=== PATIENT | male | born 1980 | race Hispanic/Latino ===

== ENCOUNTER → 2023-07-01 | Emergency (ER) | payer OTHER ==
[~2023-07-01] VITALS: Ht 182.9 cm; Wt 117.9 kg
[~2023-07-01] MED LIST: IBUP-2077 PO; METF-446 PO; PRAV20TA4 PO
[2023-07-01 16:26] VITALS: BP 145/97; PULSE 78; RESP 18; O2SAT 100
[2023-07-01] MEDS: IBUPROFEN 800 MG TAB PO ONE (16:35)
== END | disposition home or self-care (01) ==
LOC: EDH 15:50
DX: S76.011A Strain of muscle, fascia and tendon of right hip, initial encounter (principal); S80.01XA Contusion of right knee, initial encounter; I10 Essential (primary) hypertension; E78.00 Pure hypercholesterolemia, unspecified; E11.9 Type 2 diabetes mellitus without complications; Z90.89 Acquired absence of other organs; W01.0XXA Fall on same level from slipping, tripping and stumbling without subsequent striking against object, initial encounter; Y93.89 Activity, other specified; Y92.89 Other specified places as the place of occurrence of the external cause; Y99.8 Other external cause status
CPT/HCPCS: 73502; 73564

== ENCOUNTER 2023-07-19 22:53 | Emergency (ER) | payer OTHER ==
[~2023-07-19] VITALS: Ht 182.9 cm; Wt 116.1 kg
[2023-07-20] MEDS: ACETAMINOPHEN 500 MG TABLET PO ONE (00:33)
[2023-07-20 03:52] VITALS: BP 139/79; PULSE 79; RESP 17; O2SAT 98
== END 2023-07-20 04:33 | disposition home or self-care (01) ==
LOC: EDH 22:53
DX: H11.422 Conjunctival edema, left eye (principal); I10 Essential (primary) hypertension; E11.9 Type 2 diabetes mellitus without complications; E78.00 Pure hypercholesterolemia, unspecified; Z79.84 Long term (current) use of oral hypoglycemic drugs; Z90.49 Acquired absence of other specified parts of digestive tract; Z79.899 Other long term (current) drug therapy; Z98.890 Other specified postprocedural states
CPT/HCPCS: 99282

== ENCOUNTER 2025-01-11 19:27 | Emergency (ER) | payer OTHER ==
[~2025-01-11] VITALS: Ht 182.9 cm; Wt 113.4 kg
[~2025-01-11 19:27] MED LIST changes: -PRAV20TA4 PO; +PRAV20TA59 PO
--- NOTE | 2025-01-11 19:53 | ERN ---
General Chief Complaint: Abdominal Pain Stated Complaint: ABD PAIN, NAUSEA Time Seen by MD: 19:46 Source: patient History of Present Illness Initial Comments 44-year-old male with diabetes hypertension and hypercholesterolemia in the past surgical history of appendectomy with a large right lower quadrant surgical scar. Comes in with the abdominal pain for the last three months. He has been getting worked up by his primary care physician with the pain suddenly got much much worse. The pain is centered midepigastric and radiates around to both flanks to his back. Nothing makes it better nothing makes it worse. The pain he describes as a spasm like he needs to go to the bathroom really badly. He is afebrile, has nausea but no emesis. Bowels are soft but not runny. He is compliant with his medications, his current A1c is 10 and he has recently increased his antidiabetic medications. No change in urinary symptoms no fevers no chills Allergies: Coded Allergies: No Known Drug Allergies (Unverified Allergy, Unknown, 06/02/16) Home Meds Active Scripts Ibuprofen (Ibuprofen 800 mg Tab) 800 Mg Tab, 800 MG PO Q8H PRN for fever or pain, #30 TAB 0 Refills Prov:KEMAR MORRISON [employer] OFFICER 07/01/23 Reported Medications Pravastatin Sodium (Pravastatin Sodium) 20 Mg Tablet, 20 MG PO DAILYBKFST, TAB 06/02/16 Metformin HCl (Metformin HCl) 1,000 Mg Tablet, 1000 MG PO BID, TAB 06/02/16 Past Medical History Past Medical History: Diabetes-Type II, High Cholesterol, Hypertension Past Surgical History: Appendectomy, Other Surgical History Other: BILATERAL KNEE SX Constitutional: (-) chills, (-) diaphoresis, (-) fever, (-) malaise, (-) weakness, (-) other documentation EENTM: (-) eye pain, (-) blurred vision, (-) tearing, (-) double vision, (-) ear pain, (-) ear discharge, (-) nose pain, (-) nose congestion, (-) throat pain, (-) Throat swelling, (-) mouth pain, (-) tooth pain, (-) mouth swelling, (-) other documentation Respiratory: (-) cough, (-) orthopnea, (-) short of breath, (-) stridor, (-) wheezing, (-) other documentation Cardiovascular: (-) chest pain, (-) edema, (-) palpitations, (-) syncope, (-) dyspnea on exertion, (-) other documentation Gastrointestinal/Abdominal: (+) nausea, (+) abdominal pain Genitourinary: (-) penile discharge, (-) dysuria, (-) frequency, (-) hematuria, (-) pain, (-) other documentation Musculoskeletal: (+) back pain, (+) Flank Pain Skin: (-) laceration, (-) contusion, (-) abrasion, (-) abscess, (-) rash, (-) change in color, (-) change in hair, (-) change in nails, (-) diaphoresis, (-) dryness, (-) other documentation Neuro: (-) altered mental status, (-) headache, (-) syncope, (-) paralysis, (-) numbness, (-) seizure, (-) pre-existing deficit, (-) tremors, (-) weakness, (-) dizziness, (-) slurred speech, (-) vertigo, (-) other documentation Physical Exam General Appearance: (+) no apparent distress Orientation: (+) alert, (+) oriented x 3 Head/Face Trauma: No Eye: bilateral eye normal inspection, bilateral eye PERRL, bilateral eye EOMI Ear, Nose, Throat: (+) hearing grossly normal, (+) normal ENT inspection, (+) moist mucous membraine, (+) normal pharynx Neck: (+) normal inspection, (+) supple, (+) full range of motion, (+) no JVD, (+) non-tender Respiratory: (+) chest non-tender, (+) lungs clear, (+) well ventilated Heart: (+) regular, (+) no gallop Vascular: (+) no edema, (+) normal peripheral pulse, (+) no JVD Gastrointestinal: (+) soft, (+) tender, (+) bowel sound absent Gastrointestinal Comment Abdominal tenderness is worse over his rectus sheath but when he tenses his stomach muscles the pain goes down. Results Laboratory and Microbiology Lab and Micro Result Laboratory Tests Test 01/11/25 19:59 01/11/25 20:00 White Blood Count 11.0 K/uL (4.8-10.8) H Red Blood Count 4.55 MIL/uL (4.50-6.20) Hemoglobin 13.0 g/dL (14.0-18.0) L Hematocrit 39.5 % (42-54) L Mean Corpuscular Volume 86.8 fL (79-99) Mean Corpuscular Hemoglobin 28.6 pg (27.0-33.0) Mean Corpuscular Hemoglobin Concent 32.9 g/dL (32.0-36.0) Red Cell Distribution Width 13.8 % (11.0-15.5) Platelet Count 262 K/uL (130-400) Mean Platelet Volume 10.4 fL (7.5-10.5) Immature Granulocyte % (Auto) 0.4 % (0-1) Neutrophils (%) (Auto) 65.4 % (40.0-77.0) Lymphocytes (%) (Auto) 21.6 % (21.0-51.0) Monocytes (%) (Auto) 7.2 % (3.0-13.0) Eosinophils (%) (Auto) 4.3 % (0.0-8.0) Basophils (%) (Auto) 1.1 % (0.0-5.0) Neutrophils # (Auto) 7.2 K/uL (1.8-7.7) Lymphocytes # (Auto) 2.4 K/uL (1.0-4.8) Monocytes # (Auto) 0.8 K/uL (0.1-1.0) Eosinophils # (Auto) 0.47 K/uL (0.00-0.70) Basophils # (Auto) 0.12 K/uL (0.00-0.20) Absolute Immature Granulocyte (auto 0.04 K/uL (0-1) Nucleated Red Blood Cells 0.0 % (0.0-0.19) Sodium Level 139 mmol/L (136-145) Potassium Level 3.9 mmol/L (3.5-5.1) Chloride Level 102 mmol/L (101-111) Carbon Dioxide Level 28 mmol/L (21-32) Blood Urea Nitrogen 18 mg/dL (7-18) Creatinine 1.5 mg/dL (0.5-1.3) H Glomerular Filtration Rate Calc 58 mL/min (>90) Random Glucose 353 mg/dL (70-105) H Total Calcium 8.4 mg/dL (8.5-10.1) L Total Bilirubin 0.4 mg/dL (0.2-1.0) Aspartate Amino Transf (AST/SGOT) 18 U/L (10-37) Alanine Aminotransferase (ALT/SGPT) 33 U/L (12-78) Alkaline Phosphatase 80 U/L (50-136) Total Protein 6.9 g/dL (6.0-8.3) Albumin 3.7 g/dL (3.5-5.0) Lipase 50 U/L (16-77) Urine Color COLORLESS (YELLOW) Urine Appearance CLEAR (CLEAR) Urine pH 5.5 (5.0-8.0) Urine Specific [place] 1.010 (1.001-1.031) Urine Protein NEGATIVE mg/dL (NEGATIVE) Urine Glucose (UA) >=1000 mg/dL (NEGATIVE) H Urine Ketones NEGATIVE mg/dL (NEGATIVE) Urine Occult Blood NEGATIVE (NEGATIVE) Urine Nitrate NEGATIVE (NEGATIVE) Urine Bilirubin NEGATIVE mg/dL (NEGATIVE) Urine Urobilinogen 0.2 mg/dL (0.2-1.0) Urine Leukocyte Esterase NEGATIVE Michelle/uL MDM MDM: Differential diagnosis: Patient's pain and exam is relatively nonspecific. Differential diagnosis includes dehydration, constipation, gallbladder disease, pancreatitis, bowel obstruction, liver disease Rationale: Tests considered and ordered secondary to shared decision making include: Previous outside records reviewed: Old ER visits. Risk of complication and/or morbidity or mortality of patient management: None Medications-Per medication reconciliation Need for hospitalization: Patient does meet criteria for hospitalization. Need for emergency major/minor surgery: No There are no social concerns with this patient. Prescription drug management Prescriptions will include symptomatic care Patient's prior external medical records from other ER visits were reviewed by me as indicated. Prior testing and results from previous visits were reviewed. Prior tests were taken into account with medical decision making and resource utilization, independent historian/historians were used to obtain complete medical history. I independently interpreted the test that were performed, results were reviewed by me and considered findings on radiology if ordered. Patient's laboratory studies show an acute rise in his creatinine to 1.5. His LFTs are normal. His glucose is 353. Urinalysis is negative for infection. Lipase is normal. CBC shows a mild elevation in his neutrophils at 11. CT scan of his abdomen shows no obvious reason for his abdominal pain. He does have constipation and to bilateral inguinal hernias. He also has an enlarged liver. I have explained to the patient that I can offer him some pain medications and some muscle relaxants but other than that I do not have an explanation for his pain. He needs to follow up with his primary care physician to get his sugars under better control he also needs to see a renal doctor for his impending renal failure and a GI doctor about his enlarged liver. All of this was explained to the patient ED Course Orders Procedure Category Date Status Time 12 Lead Ekg Tracing- EKG 01/11/25 Logged Technical 19:46 Cbc With Differential LAB 01/11/25 Complete 19:46 Comprehensive LAB 01/11/25 Complete Metabolic Panel 19:46 Urinalysis Profile LAB 01/11/25 Complete 19:46 Lactated Ringers PHA 01/11/25 Complete 1000ml (Lactated 19:46 Orphenadrine Citrate PHA 01/11/25 Complete (Norflex) 21:00 Ct Abdomen/Pelvis CT 01/11/25 Resulted W/Wo Contras 20:48 Iohexol (Omnipaque) PHA 01/11/25 Complete 22:02 Lipase LAB 01/11/25 Complete 22:48 Current Medications Medications (Trade) Dose Ordered Sig/Apolianr Route PRN Reason Start Time Stop Time Status Last Admin Dose Admin Iohexol (Omnipaque) 75 ml STK-MED ONCE IV 01/11/25 22:02 01/11/25 22:03 DC Lactated Ringer's (Lactated Ringers 1000ml) 1,000 ml BOLUS STAT IV 01/11/25 19:46 01/11/25 19:48 DC 01/11/25 20:08 Orphenadrine Citrate (Norflex) 60 mg ONCE ONCE IVP 01/11/25 21:00 01/11/25 21:01 DC 01/11/25 21:13 Vital Signs Date Time Temp Pulse Resp B/P (MAP) Pulse Ox O2 Delivery O2 Flow Rate FiO2 01/11/25 19:45 98.4 83 18 146/102 98 Room Air* 0 21 01/11/25 19:31 97.7 86 20 148/103 99 Room Air DX & DISP Disposition: Discharge Departure Impression: Primary Impression: Abdominal pain Condition: Stable Additional Instructions: You need to follow-up with your analysis reporting developer to get your blood glucose under better control. I think your diabetes is affecting her kidneys. In addition our CT scan showed that you have an enlarged liver and you need to see a GI doctor about that. Unfortunately there was no pathology on the CT scan that can explain the pain that you are experiencing. I have given you some pain medication here. Further treatment can just be ibuprofen or Tylenol. You can also follow up with her primary care physician for this abdominal pain. Referrals: WINNIE CARRASCO (PCP) LUAN HARPER MD Jan 11, 2025 19:53
[2025-01-11 20:08] LABS: IMMATURE GRANULOCYTE ABSOLUTE 0.04 K/uL (0-1); NUCLEATED RED BLOOD CELLS 0.0 % (0.0-0.19); PLATELET COUNT (AUTO) 262 K/uL (130-400); RED BLOOD CELL COUNT(AUTO) 4.55 MIL/uL (4.50-6.20); RED CELL DISTRIBUTION WIDTH 13.8 % (11.0-15.5); WHITE BLOOD COUNT (AUTO) 11.0 K/uL (4.8-10.8)
[2025-01-11] MEDS: LACTATED RINGERS 1000ML IV STA (20:08)
[2025-01-11 20:15] LABS: APPEARANCE,URINE CLEAR (CLEAR); GLUCOSE, URINE (UA) >=1000 mg/dL (NEGATIVE); LEUKOCYTE ESTERASE ,URINE NEGATIVE Leu/uL (NEGATIVE); NITRATE,URINE NEGATIVE (NEGATIVE); OCCULT BLOOD,URINE NEGATIVE (NEGATIVE)
[2025-01-11 20:16] LABS: ADD UA MICROSCOPIC NO
[2025-01-11 20:21] LABS: CREATININE 1.5 mg/dL (0.5-1.3); GLOMERULAR FILTR. RATE CALC 58.0 mL/min (>90); GLUCOSE,RANDOM 353.0 mg/dL (70-105); SODIUM SERUM 139.0 mmol/L (136-145); UREA NITROGEN, BLOOD 18.0 mg/dL (7-18)
[2025-01-11 20:26] LABS: ASPARTATE AMINOTRANSFERASE 18.0 U/L (10-37); TOTAL PROTEIN, SERUM 6.9 g/dL (6.0-8.3)
[2025-01-11] MEDS: ORPHENADRINE 60MG/2ML IVP ONE (21:13)
--- NOTE | 2025-01-11 21:55 | NUR ---
pt not ready, consent pending
[2025-01-11] MEDS ORDERED: IOHEXOL-350 75 ML VIAL IV ONE (22:02)
--- NOTE | 2025-01-11 23:09 | HMCIMG ---
EXAM: CT Abdomen and Pelvis with and without IV contrast. CLINICAL HISTORY: Patient presents with abdominal pain and absence of bowel sounds. TECHNIQUE: Axial computed tomography images of the abdomen and pelvis were obtained before and after administration of intravenous contrast. CONTRAST: Omnipaque 350. COMPARISON: None provided. FINDINGS: LUNG BASES: The lung bases are clear. No pleural effusions. LIVER: The liver is enlarged, measuring 21.5 cm in craniocaudal dimension, with severe diffuse hepatic steatosis. Mildly dilated portal vein measuring up to 1.4 cm. GALLBLADDER AND BILE DUCTS: The gallbladder is within normal limits. No radioopaque gallstones or biliary ductal dilatation. PANCREAS: Unremarkable. SPLEEN: Mild splenomegaly measuring 12.3 cm in the anteroposterior dimension. ADRENAL GLANDS: Unremarkable. KIDNEYS, URETERS, AND BLADDER: Bilateral minimal non-specific perinephric fat stranding, which may reflect renal parenchymal disease; clinical correlation with laboratory parameters is recommended. No hydronephrosis, hydroureter, or urinary calculi. STOMACH AND BOWEL: Mild constipation. No evidence of bowel obstruction, enteritis, or colitis. APPENDIX: The appendix is not visualized; however, there is mild inflammation in the right iliac fossa. PERITONEUM: No free fluid or free air. LYMPH NODES: No lymphadenopathy. REPRODUCTIVE: Unremarkable as visualized. VASCULATURE: No evidence of abdominal aortic aneurysm. BONES: No acute osseous abnormality. ABDOMINAL WALL: Bilateral small fat-containing inguinal hernias. IMPRESSION: No CT imaging features of bowel obstruction. No acute intra-abdominal or pelvic abnormality. Moderate to severe and diffuse hepatic steatosis. Mildly dilated portal vein. Mild splenomegaly. Recommend clinical and liver function test correlation to rule out early chronic liver disease. Bilateral minimal perinephric fat stranding may reflect renal parenchymal disease; recommend a kidney function test correlation. Mild constipation. Bilateral small fat-containing inguinal hernias. /[place]
[2025-01-11 23:53] VITALS: BP 142/82; PULSE 86; RESP 20; TEMP 98.3; O2SAT 99
--- NOTE | 2025-01-12 08:08 | EKG ---
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
== END 2025-01-11 23:57 | disposition home or self-care (01) ==
LOC: EDH 19:27
DX: R10.31 Right lower quadrant pain (principal); E11.9 Type 2 diabetes mellitus without complications; E78.00 Pure hypercholesterolemia, unspecified; I10 Essential (primary) hypertension; Z79.84 Long term (current) use of oral hypoglycemic drugs; Z90.49 Acquired absence of other specified parts of digestive tract
CPT/HCPCS: 99285; 74178; 96374; 96375; 80053; 83690; 85025; 81003; 36415; 93005; J1885; Q9967; J2360